=== PATIENT | male | born 1955 | race Caucasian/White ===

== ENCOUNTER 2024-07-17 12:51 | Outpatient (AMB) | payer OTHER, SELFPAY ==
--- NOTE | 2024-07-17 12:53 | A.OFFVIS_ITS ---
Vital Signs 3 07/17/24 12:58 Height 5 ft 8 in Weight 249 lb 4 oz BMI 37.9 BP 176/85 H Blood Pressure Location Rt brachial Position Sitting Pulse 65 Pulse Source Pulse Oximeter Pulse Oximetry (%) 98 Oxygen Delivery Method Room Air Intake Visit Reasons: Lt shoulder pain Intake Note: Pain today 0/10 Allergies No Known Allergies Allergy (Verified 07/17/24 12:58) HPI HPI Lt shoulder pain: Details: Patient is very pleasant 69-year-old male with prior history migraine headaches, KWAKU with CPAP use, right knee surgery, right shoulder surgery, obesity, vitamin- D deficiency, impaired fasting glucose, presents today for initial evaluation left shoulder pain. Denies any trauma, injury, or falls. Pain is localized to lateral and slightly anterior aspects of left shoulder with referred pain to his neck on the left and biceps. Pain is worse at nighttime when he leans against left side or sleeps on left side. Patient also reports increased pain with ADLs, pulling and heavy lifting. Patient attributes pain to many years working at [employer] and playing softball. He is right-hand dominant but eats and writes with his left hand. He has retired few years ago. To this point he has not started physical therapy or tried therapeutic injections. Denies previous shoulder surgery. Patient has been taking Tylenol for pain with partial pain relief. Denies fever or chills, chest pain, shortness of breath, dizziness, numbness or tingling, infection, cough, or weakness. Location: Left shoulder pain Duration: Gradually worsening over the past 1 year Characteristics of symptom or complaint: Aching, dull, sore, hurting, heavy Aggravating or associated factors: Sleeping on left side, leaning on left side, ADLs Relieving factors: Tylenol Treatment: None [facility] Medical History (Updated 07/17/24 @ 13:22 by SANDI Watkins) Esophageal dysmotility Migraine KWAKU (obstructive sleep apnea) IFG (impaired fasting glucose) Erectile dysfunction Vitamin D deficiency Shoulder pain Hyperlipidemia Social History Alcohol intake: current Alcohol intake frequency: a few times a month Patient Tobacco Use Status: Never used Tobacco Review of Systems Const All systems reviewed & are unremarkable except as noted in HPI and below Physical Exam Vital Signs: Last Vital Signs Pulse 65 07/17/24 12:58 BP 176/85 H 07/17/24 12:58 Pulse Ox 98 07/17/24 12:58 Oxygen Delivery Method Room Air 07/17/24 12:58 BMI result Body Mass Index 37.9 General: Appears afebrile. Alert and oriented. Mood and affect appropriate. Follows and participates in conversation appropriately. Respiratory effort is unlabored. No cough. No nasal discharge. Able to transition from sit to stand unassisted. Ambulates with bilaterally normal heel strike and toe off. Extrem General: Yes capillary refill normal, Yes no clubbing, cyanosis or edema and Yes no calf tenderness Left upper extremity: shoulder/upper arm Details: inspection abnormal, tenderness Location: over the biceps tendon and over the subacromial bursa, axillary nerve sensory function normal and normal ROM (mild pain with internal rotations); no swelling, no ecchymosis, no crepitus and no unsual warmth Results Reviewed Results Reviewed: Assessment & Plan Assessment & Plan (1) Elevated BP without diagnosis of hypertension: Code(s): R03.0 - Elevated blood-pressure reading, without diagnosis of hypertension Category: Medical (2) Left shoulder pain: Code(s): M25.512 - Pain in left shoulder Category: Medical (3) Glenohumeral arthritis: Code(s): M19.019 - Primary osteoarthritis, unspecified shoulder Category: Medical Plan Recommend physical therapy and establish home exercise program as initial steps for left shoulder pain. Script provided at [facility] per patient's request as this is closer to his home. Discussed interventional treatments, including diagnostic versus therapeutic injections, peripheral nerve stimulation and RFA procedures. Informational pamphlets were provided to patient today. Scripts provided for naproxen and topical diclofenac gel. Side effects and precautions were discussed with patient. Script provided for BP machine device for patient to monitor his blood pressure and report elevated readings to his PCP. Denies any chest pain, dizziness, shortness of breath or nausea or vomiting. Patient reports occasional migraine headaches. Encouraged daily physical activity, adequate hydration, good posture, weight loss, reduce soda consumption and well-balanced diet. All questions and concerns have been answered and patient agreed with the treatment plan. Follow-up after PT and sooner as needed. Orders: Orders 2 PT Evaluation and Treatment Today M19.019 - Primary osteoarthritis, unspecified shoulder, M25.512 - Pain in left shoulder Medications: New 2 blood pressure test kit-large (Quick Response BP Monitor-Large Cuff kit) As directed 1 ea 0RF BP monitoring R03.0 - Elevated blood-pressure reading, without diagnosis of hypertension diclofenac sodium 1% (Arthritis Pain (diclofenac)) 4 grams topical QID PRN 100 grams 0RF pain M19.019 - Primary osteoarthritis, unspecified shoulder, M25.512 - Pain in left shoulder naproxen 500 mg PO BID 30 days PRN 60 tabs 0RF pain M19.019 - Primary osteoarthritis, unspecified shoulder, M25.512 - Pain in left shoulder Coding Level of Care Code New Pt Level 4 (45088) Complex EM visit Add On G2211 Diagnoses Elevated BP without diagnosis of hypertension R03.0 Left shoulder pain M25.512 Glenohumeral arthritis M19.019
[2024-07-17 12:58] VITALS: BP 176/85; PULSE 65; O2SAT 98; BMI 37.9
== END 2024-07-17 13:34 | disposition home or self-care (01) ==
LOC: HO.PMC 12:52
PROVIDERS: PCP Internal Medicine; Visit Provider Nurse Practitioner Family
DX: R03.0 Elevated blood-pressure reading, without diagnosis of hypertension (principal); M25.512 Pain in left shoulder; M19.019 Primary osteoarthritis, unspecified shoulder
CPT/HCPCS: 99204

== ENCOUNTER → 2024-07-17 12:51 | Outpatient (BNVA) | payer OTHER, SELFPAY | PROVIDERS: PCP Internal Medicine; Visit Provider Nurse Practitioner Family ==